=== PATIENT | female | born 1970 | race Two or more races ===

== ENCOUNTER 2024-08-09 17:44 | Emergency (ER) | payer MEDICAID, SELFPAY ==
[2024-08-09 18:02] VITALS: BP 136/83; PULSE 79; RESP 20; TEMP 37; O2SAT 99
--- NOTE | 2024-08-09 18:22 | XR_ITS ---
Examination: CT abdomen and pelvis without contrast. Coronal 3-D reconstructions. Sagittal 2-D reconstructions. Date and time of exam:August 09, 2024 1841 hours INDICATIONS: Left-sided flank pain beginning 3 days ago CTDI: vol (mGy): 8.81 DLP: (mGycm): 431 Technique: Axial images of the abdomen have been obtained, 3 mm slice thickness Intravenous contrast material has not been administered. Low dose protocols were performed. One or more of the following dose reduction techniques were used; automated exposure control, adjustment of the mA and/or KV according to patient size, use of iterative reconstruction technique. Findings: No focal liver or splenic lesion No gallstones No pancreatic mass Small benign proteinaceous cyst lateral margin left kidney No renal or ureteral calculi, no hydronephrosis Aorta normal size No bowel obstruction Normal appendix Colonic diverticulosis, no diverticulitis Anteverted uterus No bladder mass or bladder calculi Mild osteopenia IMPRESSION: No renal or ureteral calculi, no hydronephrosis No bladder mass or bladder calculi Normal appendix
[2024-08-09 18:57] LABS: Basophils # (Auto) 0.0 Thou/mm3 (0.0-0.2); Basophils % (Auto) 0 % (0-2.5); Eosinophils # (Auto) 0.1 Thou/mm3 (0.0-0.5); Eosinophils % (Auto) 1 % (0-10); Hematocrit 41.0 % (36.0-46.0); Hemoglobin 13.1 g/dL (12.0-16.0); Immature Granulocytes Auto 0.02 Thou/mm3 (0.00-0.00); Lymphocytes # (Auto) 2.8 Thou/mm3 (1.0-4.8); Lymphocytes % (Auto) 38 % (10-50); Mean Corpuscular HGB Conc 32.0 g/dl (31.0-37.0); Mean Corpuscular Hemoglobin 27.6 pg (25.0-35.0); Mean Corpuscular Volume 86 fL (80-100); Monocytes # (Auto) 0.5 Thou/mm3 (0.0-0.8); Monocytes % (Auto) 7 % (0-12); Neutrophils # (Auto) 4.1 Thou/mm3 (1.8-7.7); Neutrophils % (Auto) 54 % (37-80); Nucleated Red Blood Cell # 0.00 Thou/mm3 (0.00-0.00); Nucleated Red Blood Cell % 0 /100 WBC (0); Platelet Count 255 Thou/mm3 (140-440); RDW Standard Deviation 42.9 fL (36.4-46.3); Red Blood Count 4.75 Miln/mm3 (4.00-5.20); White Blood Count 7.6 Thou/mm3 (3.6-11.0)
[2024-08-09 19:16] LABS: Alanine Aminotransferase 75 U/L (10-49); Albumin, Serum 4.7 gm/dL (3.5-5.0); Albumin/Globulin Ratio 1.5 (1.2-2.2); Alkaline Phosphatase 141 U/L (46-116); Anion Gap 12 (7-16); Aspartate Amino Transferase 61 U/L (0-34); BUN/Creatinine Ratio 17 Ratio (12-20); Bilirubin,Total 0.3 mg/dL (0.3-1.2); Blood Urea Nitrogen 12 mg/dL (9-23); Calcium 9.3 mg/dL (8.3-10.6); Calcium (Corrected) 9.3 mg/dL (8.5-10.1); Carbon Dioxide 24.8 mMol/L (20.0-31.0); Chloride 106 mMol/L (98-107); Creatinine (Component) 0.7 mg/dL (0.6-1.3); Globulin 3.2 gm/dL (2.3-3.5); Glucose 99 mg/dL (74-106); Lipase 54 U/L (12-53); Osmolality,Calculated 284 (275-295); Potassium 3.8 mMol/L (3.4-5.1); Sodium 143 mMol/L (136-145); Total Protein 7.9 gm/dL (5.7-8.2); eGFR > 60 See Note
[2024-08-09 19:19] LABS: Collection Type, Urine Clean Catch
[2024-08-09 19:54] LABS: HCG Qualitative,Urine Negative
[2024-08-09 20:15] LABS: Bilirubin,Urine Negative (Negative); Blood,Urine Negative (Negative); Clarity,Urine Clear (Clear/Hazy); Color,Urine Lt-Yellow (Lt Yel-Yel); Glucose, Urine Negative (Negative); Ketones,Urine Negative (Negative); Leukocyte Esterase,Urine Positive (Negative); Nitrite,Urine Negative (Negative); PH,Urine 5.5 (5.0-7.0); Protein,Urine Negative (Neg - Trace); RBC,Urine 2 /hpf (0-3); Specific Gravity,Urine 1.019 (1.001-1.035); Squamous Epithelial Cell,Urine 9 /hpf (0-5); Urobilinogen,Urine Negative mg/dL (0.0-1.0); WBC,Urine 17 /hpf (0-5)
--- NOTE | 2024-08-09 21:07 | PD.EDABDPN ---
ED Abdominal Pain RME/HPI General Chief Complaint: Abdominal Pain Stated complaint: Left upper abdominal pain/ left back pain X 3 days Time seen by provider: 08/09/24 18:19 Arrival date/time: 08/09/24 17:44 This is a case of a 53-year-old female who came in the emergency room due to left-sided abdominal pain radiating to the left for 3 days associated with nausea vomiting denies any constipation diarrhea denies any blood in stool denies any urinary symptoms Limitations: no limitations Related Data Previous Rx's ?Medication ?Instructions ?Recorded cephalexin 500 mg capsule 500 mg PO QID 10 days #40 caps 08/09/24 dicyclomine 20 mg tablet 20 mg PO TID PRN abdominal pain 08/09/24 #20 tabs ondansetron 4 mg disintegrating 4 mg PO Q8H PRN nausea and 08/09/24 tablet vomiting #20 tabs Allergies Allergy/AdvReac Type Severity Reaction Status Date / Time NKA* Allergy Uncoded 08/09/24 17:49 Review of Systems Review of Systems Systems Reviewed: All systems reviewed, normal except as documented Constitutional Constitutional: Reports system reviewed and no additional complaints, except as documented and Reports as per HPI ENT Ears, Nose, Mouth, and Throat: Denies dysphagia and Denies odynophagia Cardiovascular Cardiovascular: Reports system reviewed and no additional complaints, except as documented and Reports as per HPI Gastrointestinal Gastrointestinal: Reports system reviewed and no additional complaints, except as documented, Reports as per HPI, Reports abdominal pain, Denies belching, Denies bloating, Denies change in bowel habits, Denies change in stool character, Denies coffee ground emesis, Denies constipation, Denies cramping, Denies diarrhea, Denies dyspepsia, Denies dysphagia, Denies early satiety, Denies excessive flatus, Denies fecal incontinence, Denies heartburn, Denies hematemesis, Denies hematochezia, Denies loose stools, Denies melena, Reports nausea, Denies odynophagia, Denies tenesmus and Reports vomiting Genitourinary Genitourinary: Denies difficulty voiding, Denies dysuria, Denies hematuria, Denies urinary frequency, Denies urinary incontinence, Denies urinary hesitancy, Denies urinary urgency, Denies vaginal discharge, Denies vaginal dryness, Denies vaginal odor and Denies vaginal pruritus Musculoskeletal Musculoskeletal: Reports system reviewed and no additional complaints, except as documented and Reports as per HPI Neurologic Neurologic: Reports system reviewed and no additional complaints, except as documented and Reports as per HPI Past Medical History Social History SMOKING STATUS: Never smoker ED Exam General Limitations: Present no limitations General appearance: Present alert and in no apparent distress; Absent appears intoxicated, anxious, lethargic, obtunded, in distress, obese or cachectic Head Head exam: Present atraumatic Eye Eye exam: Present normal appearance, PERRL and EOMI ENT ENT exam: Present normal exam, normal oropharynx and mucous membranes moist Neck Neck exam: Present normal inspection, full ROM and trachea midline; Absent tenderness, meningismus, lymphadenopathy or thyromegaly Chest Chest inspection: Present normal inspection and symmetric chest wall rise; Absent tenderness, rash or abscess Respiratory Respiratory exam: Present normal lung sounds bilaterally; Absent respiratory distress, wheezes, stridor, accessory muscle use or prolonged expiratory phase Cardiovascular Cardiovascular exam: Present regular rate, normal rhythm and normal heart sounds; Absent bradycardia, tachycardia, irregular rhythm, systolic murmur or diastolic murmur Abdominal Exam Abdominal exam: Present soft, tenderness (Mild tenderness left lower quadrant), normal bowel sounds and other (No CVA tenderness); Absent distention, guarding, rebound, rigidity, diminished bowel sounds, hyperactive bowel sounds, hypoactive bowel sounds, organomegaly, trauma, psoas sign, obturator sign, heel tap sign, James's sign, Rovsing's sign, tenderness at McBurney's Point, ascites or pulsatile mass Abdominal tenderness: Present LLQ and mild Extremities Exam Extremities exam: Present normal inspection and full ROM Back Exam Back exam: Present normal inspection and full ROM Neurological Exam Neurological exam: Present alert, oriented X3, CN II-XII intact, normal gait and reflexes normal; Absent motor sensory deficit Psychiatric Psychiatric exam: Present normal affect and normal mood Skin Skin exam: Present warm, dry, intact and normal color Course Quality Measures none Orders Category Date Time Status CT abdomen pelvis wo con Stat Exams 08/09/24 18:22 Completed CBC Stat Lab 08/09/24 18:46 Completed Comprehensive Metabolic Panel Stat Lab 08/09/24 18:46 Completed HCG Qualitative,Urine Stat Lab 08/09/24 19:12 Completed Lipase Stat Lab 08/09/24 18:46 Completed Urinalysis Stat Lab 08/09/24 19:12 Completed Dicyclomine Inj [Bentyl Inj] Med 08/09/24 21:03 Discontinued 10 mg IM X1 ONE cefTRIAXone [Rocephin] 1,000 mg Med 08/09/24 21:04 Discontinued Lidocaine 1% 20 ml [Xylocaine 1% 20 ML] 2.1 ml IM X1 Vital Signs Vital signs: Vital Signs Temperature 98.6 F 08/09/24 18:02 Pulse Rate 79 08/09/24 18:02 Respiratory Rate 20 08/09/24 18:02 Blood Pressure 136/83 H 08/09/24 18:02 Pulse Oximetry (%) 99 08/09/24 18:02 Oxygen Delivery Method Room Air 08/09/24 18:02 Vital signs stable oxygen saturation 99% in room air Abdominal Pain MDM MDM Narrative MDM Narrative:: This is a case of a 53-year-old female who came in the emergency room due to left-sided abdominal pain radiating to the left for 3 days associated with nausea vomiting denies any constipation diarrhea denies any blood in stool denies any urinary symptoms physical examination patient is awake alert oriented not in distress nontoxic looking vital signs stable patient is awake alert oriented not in distress nontoxic looking well-hydrated well-nourished no signs and symptoms of dehydration no signs and symptoms of sepsis abdominal exam noted mild tenderness on the left lower quadrant no guarding no rebound no rigidity negative psoas negative straight or negative Rovsing's negative Samia's negative James sign negative CVA tenderness blood test showed no leukocytosis no anemia kidney function is normal liver function is mildly elevated AST 61 ALT 75 and alk phos 141 lipase is normal urinalysis showed positive WBC positive urinary tract infection CT scan is normal except left kidney cyst at this point patient was given Bentyl for pain patient abdominal pain improved and resolved patient has no nausea vomiting at that time of reassessment patient was started on ceftriaxone IM for urinary tract infection I have a long discussion with the patient patient will follow-up with PCP to be referred to urologist for left renal cyst and need to be referred to aircraft maintenance engineer for elevated liver enzyme patient understood very well the discharge instruction patient is pain-free and vital signs stable upon discharge Patient was discharged with comfortable condition walking with stable gait. Patient verbalized no further complains explained diagnosis and answered patient question. Patient is comfortable with the proposed management plan including the need to follow up with his/her primary care physician and any specialist if applicable Discussed patient for any urgent condition or worsening sx, He/She needed to go to emergency room immediately or call 911. Patient acknowledge the responsibility to follow up as instructed and to monitor her/his symptoms. For any persistence of the symptoms for more than 3-5 days return precaution advised. Discussed the result of the test and was given printed discharge instruction Patient data External records reviewed:: [facility] previous records Clinical information provided by:: patient Social determinants that could affect healthcare access:: none Patient has the following chronic illnesses:: None How is presenting disease/condition affected by chronic disease/condition?: no chronic disease Evaluation data The following diagnostics were reviewed and interpreted by me:: lab results and radiology exam(s) Lab and/or radiology exams considered but not ordered:: Reviewed Interpretation Summary: Reviewed Medications / Prescriptions Medications or Prescriptions considered but not ordered:: Given Medication administrations:: Medication Administration History Discontinued Medications Ceftriaxone Sodium 1,000 mg/ (Lidocaine HCl 2.1 ml) 0 mg IM X1 ONE Stop: 08/09/24 21:05 Dicyclomine HCl (Dicyclomine Inj 10 Mg/Ml 2ml Amp) 10 mg IM X1 ONE Stop: 08/09/24 21:04 Given Consultations Consultation(s) initiated? (list below): No Diagnosis Differential diagnosis abdominal pain: abdominal pain, acute appendicitis, calculus of kidney and diverticulitis Most likely diagnosis given after review of the tests above:: Left renal cyst urinary tract infection Admission Indicated Admission indicated?: not indicated Explain why admission is indicated or not indicated:: Not indicated Admission Request Was there a request for admission?: No Admission Attestation Admission request attestation: Not indicated Disposition Plan Disposition Plan: Discharge Discharge Attestation Discharge Attestation: The patient and all family members were given an opportunity to ask questions and understood the discharge instructions. Discharge instructions specifically effects, indications for sooner follow up or return to the emergency department, and the expected course of current diagnosis. Patient condition: Stable Discharge Plan Plan Patient Disposition: HOME (Self Care) Patient condition on transfer: Stable Prescriptions/Referrals Prescriptions/Med Rec: New cephalexin 500 mg capsule 500 mg PO QID 10 Days Qty: 40 0RF dicyclomine 20 mg tablet 20 mg PO TID PRN (Reason: abdominal pain) Qty: 20 0RF ondansetron 4 mg tablet,disintegrating 4 mg PO Q8H PRN (Reason: nausea and vomiting) Qty: 20 0RF Referrals: Rishi Interiano MD [Primary Care Provider] - In 1 week Problem List Clinical Impression: Abdominal pain, Urinary tract infection, Elevated liver enzymes, Renal cyst Patient/Caregiver Discharge Instructions Education Materials: Abdominal Pain, Urinary Tract Infections in Women Additional Instructions: Follow-up with your primary care physician in 2 days for reevaluation and to be referred to aircraft maintenance engineer for further evaluation and treatment of elevated liver enzyme need to monitor the level as an outpatient recurrence persistent worsening symptoms or any emergent concern call 911 or go to the nearest emergency room take your medication as directed finish the course of antibiotic increase water intake keep hydrated follow-up with urologist for further evaluation and treatment of the renal cyst Print Language: [place] Stand Alone Forms: Adriane Award Info., Patient Portal Info Letter PA/CONTROL OFFICER MANAGER Supervising Physician PA/ZOFIA Supervising Physician: dr lopez
[2024-08-09] MEDS: DICYCLOMINE INJ 10 MG/ML 2ML AMP IM (21:19)
[2024-08-09] MEDS: cefTRIAXone 1,000 MG, LIDOCAINE 1% 20 ML 2.1 ML IM (21:20)
== END 2024-08-09 21:32 | disposition home or self-care (01) ==
PROVIDERS: Nurse Practitioner Family; Emergency Provider Emergency Medicine; PCP Family Medicine
DX: N28.1 Cyst of kidney, acquired (principal); N39.0 Urinary tract infection, site not specified; R74.8 Abnormal levels of other serum enzymes
CPT/HCPCS: 36415; 74176; 80053; 81001; 81025; 83690; 85025; 93005; 99284; J0500; J0696; J3490